=== PATIENT | female | born 1940 | race Caucasian/White ===

== ENCOUNTER → 2024-08-10 11:56 | Outpatient (CLI) | payer MEDICARE, SELFPAY ==
--- NOTE | 2024-08-10 12:01 | DI.ECHO.S_ITS ---
[facility] : : [address] : : [place] : : [id number] : : Phone: [phone] Echocardiogram Report + + :Name: TYRA JOYA Study Date: 08/10/2024 Height: 66 in : :[facility] ReadingLocation: Weight: 216 lb : : Gender: Female BSA: 2.1 m2 : :: 1940 Age: 84 yrs BP: 156/84 mmHg: :Reason For Study: SHORTNESS OF BREATH : :Ordering Physician: JASMYN, : :MARGRET Garcia Performed By: Donna Benoit : :Referring: MARGRET BENJAMIN : + + Interpretation Summary The ejection fraction is estimated to be 55-60%. Diastolic function could not be accurately assessed due to unobtainable data. The right ventricle is normal in size and function. No significant valvular abnormalities. Pulmonary artery pressures cannot be estimated because of the lack of a measurable TR jet velocity but the IVC suggests a CVP of around 3 mmHg. Procedure: A two-dimensional transthoracic echocardiogram with color flow and Doppler was performed. The study quality was technically adequate. There is no prior echocardiogram noted for this patient. The patient was in sinus rhythm with heart rates between 72-76 bpm during the exam. Left Ventricle: The left ventricle is normal in size and wall thickness. The ejection fraction is estimated to be 55-60%. Diastolic function could not be accurately assessed due to unobtainable data. Right Ventricle: The right ventricle is normal in size and function. Atria: The left atrial size is normal. Right atrial size is normal. There is no Doppler evidence for an interatrial shunt. Mitral Valve: The mitral valve leaflets appear to open well. There is mild mitral annular calcification. There is no mitral regurgitation noted. Aortic Valve: The aortic valve is trileaflet. The aortic valve opens well. There is no aortic valve stenosis. No aortic regurgitation is present. Tricuspid Valve: The tricuspid valve leaflets are thin and pliable. No tricuspid regurgitation. Pulmonary artery pressures cannot be estimated because of the lack of a measurable TR jet velocity but the IVC suggests a CVP of around 3 mmHg. Pulmonic Valve: The pulmonic valve leaflets are thin and pliable; valve motion is normal. There is mild pulmonic regurgitation. Great Vessels: The aortic root is normal size. The dimensions of the ascending aorta are normal. The IVC is of normal diameter and collapses greater than 50% with a sniff. This suggests a low right atrial pressure of 3 mm Hg. Pericardium/ Pleura There is no pericardial effusion. There is no pleural effusion. MMode/2D Measurements & Calculations LVIDd: 4.9 cm LVOT diam: 2.4 cm LVIDs: 3.5 cm Ao root diam: 3.4 cm FS: 29.3 % asc Aorta Diam: 3.4 cm IVSd: 0.93 cm Ao Arch Diam (Prox Trans): 2.6 cm LVPWd: 0.98 cm LV diaz. diameter/BSA (cm/m^2): 2.4 LV sys. diameter/BSA (cm/m^2): 1.7 LA A2 area: 20.2 cm2 RA long axis: 5.5 cm LA A4 area: 17.0 cm2 RA area: 14.9 cm2 LA length (vol): 4.9 cm RA vol: 34.5 ml LA vol: 60.0 ml RA : 16.7 ml/m2 LA vol index: 29.0 ml/m2 IVC diam: 1.2 cm RVD1 (basal): 3.3 cm RVD2 (mid): 3.1 cm TAPSE: 1.5 cm Doppler Measurements & Calculations Ao V2 max: 133.3 cm/sec LVOT Max Prince: 88.3 cm/sec Ao V2 mean: 90.4 cm/sec LV V1 max P.1 mmHg Ao max P.1 mmHg LV V1 VTI: 19.2 cm Ao mean P.6 mmHg RACHNA(I,D): 3.1 cm2 Ao V2 VTI: 27.5 cm RACHNA(V,D): 2.9 cm2 sev ratio: 0.70 RACHNA indexed to BSA (cm^2/m^2): 1.5 MV E max prince: 67.1 cm/sec PA V2 max: 77.4 cm/sec MV A max prince: 107.2 cm/sec PA V2 mean: 51.0 cm/sec MV E/A: 0.63 PA mean P.2 mmHg Med Peak E' Prince: 4.4 cm/sec PA pr(Accel): 43.0 mmHg E/E' med: 15.2 Lat Peak E' Prince: 4.6 cm/sec E/E' lat: 14.5 E/e' average: 14.8 MV dec time: 0.28 sec SV(LVOT): 84.0 ml Reading Physician:04:49 PM
--- NOTE | 2024-08-21 17:07 | DI.NM.S_ITS ---
DATE OF SERVICE: 08/21/2024 EXERCISE PERFUSION STUDY INDICATIONS: Shortness of breath, hypertension, hyperlipidemia. RADIOPHARMACEUTICAL: 26.8 mCi technetium-99m Myoview IV was injected at stress and 26.8 mCi technetium-99m Myoview IV was injected at rest. This is a two days protocol. CARDIAC STRESS: The patient underwent exercise stress test under the supervision of an attending staff. The patient walked on Papa protocol for 3 minutes and 50 seconds, achieved four METS of workload, 104% of target heart rate. Resting blood pressure 142/80. Peak blood pressure 170/80. Baseline rhythm sinus. During stress, no convincing ischemic changes. No significant arrhythmias. No chest pain. The patient felt shortness of breath. Oxygen saturation 94% at peak exercise. RAW DATA: Breast shadow seen. GATED STUDY: Stress LV ejection fraction 73% without any obvious wall motion abnormalities. Resting end-diastolic volume 93 mL. TID ratio 0.98, which is within normal limits. Lung/heart ratio 0.34, which is within normal limits. MYOCARDIAL PERFUSION SCAN: Stress supine, resting supine images were compared to each other. There is normal myocardial perfusion. There is no prone images. CONCLUSION: This is a normal myocardial perfusion study. Diminished exercise tolerance. JOVITA -15%. No chest pain. No ischemic EKG changes. No significant arrhythmias. Oxygen saturation 94% at peak exercise. Preserved LV function. Overall, low-risk myocardial perfusion scan. Hayley Santos - ANDRA/denae/ANUSHKA doc#: [id number]/job#: [id number] dd: 08/21/2024 16:41:00 dt: 08/21/2024 16:50:00 DICTATING MD/COPIES TO: Anna Sarabia MD COPIES MNE: HAYLEE;
== END ==
LOC: NUCM 12:00
PROVIDERS: Referring Provider Internal Medicine Cardiovascular Disease; Visit Provider Internal Medicine Cardiovascular Disease
DX: I34.81 Nonrheumatic mitral (valve) annulus calcification (principal); I37.1 Nonrheumatic pulmonary valve insufficiency; R06.02 Shortness of breath
CPT/HCPCS: 93306